=== PATIENT | female | born 1945 | race Caucasian/White ===

== ENCOUNTER 2017-02-24 15:02 | Emergency (ER) | payer OTHER ==
[~2017-02-24] VITALS: Ht 170.2 cm; Wt 54.4 kg
--- NOTE | 2017-02-24 17:03 | NUR ---
Patient discharged to home in stable conditon with daughter. Written and verbal after care instructions given. Patient and daughter verbalizes understanding of instructions.
== END 2017-02-24 17:06 | disposition home or self-care (01) ==
LOC: ER 15:02
DX: S20.211A Contusion of right front wall of thorax, initial encounter (principal); X58.XXXA Exposure to other specified factors, initial encounter; Y93.89 Activity, other specified; Y92.9 Unspecified place or not applicable; Y99.9 Unspecified external cause status
CPT/HCPCS: 71101; 99284; A4663